=== PATIENT | female | born 1960 | race Hispanic/Latino ===

== ENCOUNTER 2017-02-23 17:14 | Emergency (ER) | payer OTHER ==
[2017-02-23 17:15] VITALS: BMI 25.7
[2017-02-23 17:18] VITALS: TEMP 98.3; O2SAT 97
[2017-02-23] MEDS ORDERED: DiphenhydrAMINE 50 mg/ml Inj IVP STA (17:32)
--- NOTE | 2017-02-23 17:46 | ED PDOC ---
Arrival/HPI - General Chief Complaint: Headache Time Seen by Provider: 02/23/17 17:21 Historian: Patient - History of Present Illness Narrative History of Present Illness (Text): 02/23/17 17:42 A 56 year old female whose past medical history includes, hyperthyroidism and an upper spine syrinx, presents to the Emergency department with upper back pain and a headache that has been worsening over the last few days. The patient [place] that [place] She also notes that 2 years ago she had an MRI that showed the syrinx and had another one done 2 weeks ago, but has not yet received the results. The patient denies fevers, chills, dizziness, chest pain, shortness of breath, abdominal pain, vomiting, nausea, diarrhea, or any other complaint. Time/Duration: Other (Few Days) Symptom Onset: Sudden Symptom Course: Unchanged Activities at Onset: Rest, Light Context: Home Past Medical History - Provider Review Nursing Documentation Reviewed: Yes - Infectious Disease Hx of Infectious Diseases: None - Tetanus Immunization Tetanus Immunization: Unknown - Reproductive Menopause: Yes (no period for at least 1 year) - Cardiac Hx Cardiac Disorders: Yes Hx Hypertension: Yes - Pulmonary Hx Respiratory Disorders: No - Neurological Hx Neurological Disorder: No - HEENT Hx HEENT Disorder: No - Renal Hx Renal Disorder: Yes Hx Kidney Stones: Yes (was removed) - Endocrine/Metabolic Hx Endocrine Disorders: Yes Hx Hypothyroidism: Yes - Hematological/Oncological Hx Blood Disorders: No - Integumentary Hx Dermatological Disorder: No - Musculoskeletal/Rheumatological Hx Falls: No - Gastrointestinal Hx Gastrointestinal Disorders: No - Genitourinary/Gynecological Hx Genitourinary Disorders: No - Psychiatric Hx Psychophysiologic Disorder: No Hx Substance Use: No - Surgical History Other/Comment: kidney stones removed - Anesthesia Hx Anesthesia: Yes Hx Anesthesia Reactions: No Hx Malignant Hyperthermia: No - Suicidal Assessment Feels Threatened In Home Enviroment: No Family/Social History - Physician Review Nursing Documentation Reviewed: Yes Family/Social History: No Known Family HX Smoking Status: Never Smoked Hx Alcohol Use: No Hx Substance Use: No Hx Substance Use Treatment: No Allergies/Home Meds Allergies/Adverse Reactions: Allergies No Known Allergies Allergy (Verified 02/23/17 17:18) Home Medications: Home Meds Medication Instructions Recorded Confirmed Levothyroxine [Synthroid] 25 mcg PO DAILY 01/02/15 02/23/17 Review of Systems - Physician Review All systems were reviewed & negative as marked: Yes - Review of Systems Constitutional: absent: Fevers, Night Sweats Respiratory: absent: SOB Cardiovascular: absent: Chest Pain Gastrointestinal: absent: Abdominal Pain, Diarrhea, Nausea, Vomiting Musculoskeletal: Back Pain Neurological: Headache. absent: Dizziness Physical Exam Vital Signs Reviewed: Yes Vital Signs Temp Pulse Resp BP Pulse Ox 02/23/17 17:17 98.3 F 83 18 116/79 97 Temperature: Afebrile Blood Pressure: Normal Pulse: Regular Respiratory Rate: Normal Appearance: Positive for: Well-Appearing, Non-Toxic, Comfortable Pain Distress: None Mental Status: Positive for: Alert and Oriented X 3 - Systems Exam Head: Present: Atraumatic, Normocephalic Pupils: Present: PERRL Extroacular Muscles: Present: EOMI Conjunctiva: Present: Normal Mouth: Present: Moist Mucous Membranes Neck: Present: Normal Range of Motion Respiratory/Chest: Present: Clear to Auscultation, Good Air Exchange. No: Respiratory Distress, Accessory Muscle Use Cardiovascular: Present: Regular Rate and Rhythm, Normal S1, S2. No: Murmurs Abdomen: Present: Normal Bowel Sounds. No: Tenderness, Distention, Peritoneal Signs Back: Present: Normal Inspection Upper Extremity: Present: Normal Inspection. No: Cyanosis, Edema Lower Extremity: Present: Normal Inspection. No: Edema Neurological: Present: GCS=15, CN II-XII Intact, Speech Normal Skin: Present: Warm, Dry, Normal Color. No: Rashes Psychiatric: Present: Alert, Oriented x 3, Normal Insight, Normal Concentration Medical Decision Making ED Course and Treatment: 02/23/17 17:48 Impression: A 56 year old female with a complaint of worsening headache and back pain for the past few days. Plan: -- Head CT -- Urinalysis -- Labs -- Benadryl and Reglan -- Reassess and disposition Prior Visits: Patient was last seen in the Emergency department on 01/02/15 for chest and back discomfort. Progress Notes: CT Head Without Intravenous Contrast IMPRESSION: No acute intracranial findings. Sphenoid sinus fluid level suggesting acute sinusitis. Dictated and Authenticated by: Magdy Prince MD 02/23/2017 6:58 PM Eastern Time ([place] & [place]) 02/23/17 19:41 case discussed with pts neurologist, dr frazier. state pt due for outpt mri. pt neuro intact. pain temp intact. pt states symptoms resolved. dr frazier advises pt can be managed as outpt. - Lab Interpretations Lab Results: 02/23/17 18:10 02/23/17 18:10 Lab Results 02/23/17 18:40: Urine Color Light yellow, Urine Appearance Clear, Urine pH 6.0, Ur Specific [place] 1.010, Urine Protein Negative, Urine Glucose (UA) Negative, Urine Ketones Negative, Urine Blood Negative, Urine Nitrate Negative, Urine Bilirubin Negative, Urine Urobilinogen 0.2, Ur Leukocyte Esterase Trace H, Urine RBC Pending, Urine WBC Pending, Urine HCG, Qual Pending 02/23/17 18:10: Sodium 140, Potassium 3.8, Chloride 103, Carbon Dioxide 28, Anion Gap 13, BUN 14, Creatinine 0.8, Est GFR ( Amer) > 60, Est GFR (Non- Af Amer) > 60, Random Glucose 97, Calcium 9.7, Total Bilirubin 0.9, AST 30, ALT 32, Alkaline Phosphatase 93, Total Protein 7.5, Albumin 4.3, Globulin 3.2, Albumin/Globulin Ratio 1.3 02/23/17 18:10: PT 11.1, INR 1.03, APTT 26.3 02/23/17 18:10: WBC 7.0 D, RBC 4.67, Hgb 14.2, Hct 41.5, MCV 88.9, MCH 30.4, MCHC 34.2, RDW 13.3, Plt Count 291, MPV 9.0, Gran % 57.3, Lymph % (Auto) 31.1, Kinney % (Auto) 9.6 H, Eos % (Auto) 1.9, Baso % (Auto) 0.1, Gran # 4.00, Lymph # 2.2, Kinney # 0.7 H, Eos # 0.1, Baso # 0.01 I have reviewed the lab results: Yes - RAD Interpretation Radiology Orders: 02/23/17 17:30 HEAD W/O CONTRAST [CT] Stat - Medication Orders Current Medication Orders: Discontinued Medications Diphenhydramine HCl (Benadryl) 25 mg IVP STAT STA Stop: 02/23/17 17:33 Last Admin: 02/23/17 18:09 Dose: 25 mg Metoclopramide HCl (Reglan) 10 mg IVP STAT STA Stop: 02/23/17 17:33 Last Admin: 02/23/17 18:09 Dose: 10 mg - Scribe Statement The provider has reviewed the documentation as recorded by the [facility] Provider Matthewibe Attestation: All medical record entries made by the Scribe were at my direction and personally dictated by me. I have reviewed the chart and agree that the record accurately reflects my personal performance of the history, physical exam, medical decision making, and the department course for this patient. I have also personally directed, reviewed, and agree with the discharge instructions and disposition. Disposition/Present on Arrival - Present on Arrival Any Indicators Present on Arrival: No History of DVT/PE: No History of Uncontrolled Diabetes: No Urinary Catheter: No History of Decub. Ulcer: No History Surgical Site Infection Following: None - Disposition Have Diagnosis and Disposition been Completed?: Yes Diagnosis: Headache Disposition: HOME/ ROUTINE Disposition Time: 19:42 Condition: STABLE Discharge Instructions (ExitCare): Acute Headache (ED) Additional Instructions: please follow up with your doctor. return to er with worsening symptoms or concerns. please follow up with your neurologist. you will need further testing. Prescriptions: Acetaminophen/Butalbital/Caf [Fioricet] 1 tab PO Q8 PRN #20 tab PRN Reason: Headache Referrals: Janis Frazier MD [Staff Provider] - Follow up with primary Forms: [employer] (Guatemalan)
[2017-02-23 18:20] LABS: BASO # 0.01 K/mm3 (0.0-2.0); BASO % 0.1 % (0.0-3.0); EOS # 0.1 (0.0-0.7); EOS % 1.9 % (1.5-5.0); GRAN % 57.3 % (50.0-68.0); HEMOGLOBIN 14.2 g/dL (12.0-16.0); LYMPH # 2.2 (1.2-3.4); LYMPH % 31.1 % (22.0-35.0); MEAN CELL VOLUME 88.9 fl (80.0-105.0); MEAN CORPUSCULAR HEMOGLOBIN 30.4 pg (25.0-35.0); MEAN CORPUSCULAR HGB CONC 34.2 g/dl (31.0-37.0); MONO # 0.7 (0.1-0.6); MONO % 9.6 % (1.0-6.0); PLATELET COUNT 291 10^3/uL (120.0-450.0); RBC 4.67 10^6/uL (3.5-6.1); RED CELL DISTRIBUTION WIDTH 13.3 % (11.5-14.5)
[2017-02-23 18:35] LABS: INR 1.03 (0.93-1.08); PARTIAL THROMBOPLASTIN TIME 26.3 Seconds (23.7-30.8); PROTHROMBIN TIME 11.1 Seconds (9.9-11.8)
[2017-02-23 18:36] LABS: ALB/GLOB RATIO 1.3 (1.1-1.8); ALBUMIN 4.3 g/dL (3.0-4.8); ALT/SGPT 32 U/L (7-56); AST/SGOT 30 U/L (15-39); BLOOD UREA NITROGEN 14 mg/dL (7-21); CALCIUM 9.7 mg/dL (8.4-10.5); GFR AFRICAN-AMERICAN > 60; GFR NON-AFRICAN AMERICAN > 60
[2017-02-23 19:34] LABS: URINE APPEARANCE CLEAR (CLEAR); URINE BILIRUBIN NEGATIVE (NEGATIVE); URINE BLOOD NEGATIVE (NEGATIVE); URINE COLOR LIGHT YELLOW (YELLOW); URINE GLUCOSE (UA) NEGATIVE (NEGATIVE); URINE LEUKOCYTE ESTERASE TRACE Leu/uL (NEGATIVE); URINE NITRATE NEGATIVE (NEGATIVE); URINE PROTEIN NEGATIVE mg/dL (<30 mg/dL); URINE UROBILINOGEN 0.2 E.U./dL (<1 E.U./dL)
[2017-02-23 19:45] LABS: HCG,QUALITATIVE URINE NEGATIVE (NEGATIVE)
[2017-02-23 19:51] LABS: URINE BACTERIA FEW (NEG); URINE EPITHELIAL CELLS 0 - 2 /hpf (0-5); URINE RBC 0 - 2 /hpf (0-2); URINE WBC 0 - 2 /hpf (0-6)
[2017-02-23 19:58] VITALS: BP 100/67; PULSE 64; RESP 16
--- NOTE | 2017-02-24 06:57 | CT ---
PROCEDURE: CT HEAD WITHOUT CONTRAST. HISTORY: [place] COMPARISON: None available. TECHNIQUE: Axial computed tomography images were obtained through the head/brain without intravenous contrast. Radiation dose: Total exam DLP = 774.23 mGy-cm. This CT exam was performed using one or more of the following dose reduction techniques: Automated exposure control, adjustment of the mA and/or kV according to patient size, and/or use of iterative reconstruction technique. FINDINGS: HEMORRHAGE: No intracranial hemorrhage. BRAIN: No mass effect or edema. No atrophy or chronic microvascular ischemic changes. VENTRICLES: Unremarkable. No hydrocephalus. CALVARIUM: Move PARANASAL SINUSES: Chronic ethmoid and left maxillary sinus disease. MASTOID AIR CELLS: Unremarkable as visualized. No inflammatory changes. OTHER FINDINGS: None. IMPRESSION: No acute intracranial abnormalities. No significant findings to account for the clinical presentation. Additional benign and/or incidental findings described above. Concordant results (preliminary interpretation) provided by [employer]. Procedure Completed: 18:27. Preliminary ([facility]) Report: Dictated and Authenticated: 18:58 Final Interpretation: 06:55 February 24, 2017.
== END 2017-02-23 20:00 | disposition home or self-care (01) ==
LOC: ED 17:14
DX: R51 Headache (principal); I10 Essential (primary) hypertension
CPT/HCPCS: 70450; 80053; 81001; 84703; 85025; 85610; 85730; 87086; 96374; 96375; 99285; J1200; J2765

== ENCOUNTER 2017-12-26 03:53 | Emergency (ER) | payer OTHER ==
[2017-12-26 03:54] VITALS: BMI 26.6
[2017-12-26 05:10] VITALS: RESP 18
[2017-12-26] MEDS ORDERED: DiphenhydrAMINE 50 mg/ml Inj IVP ONE (05:39)
--- NOTE | 2017-12-26 05:39 | ED PDOC ---
Arrival/HPI - General Chief Complaint: Headache Time Seen by Provider: 12/26/17 05:34 Historian: Patient, Family - History of Present Illness Narrative History of Present Illness (Text): 12/26/17 05:39 Sultan Beaver is a 57 year old female, whose past medical history includes hypothyroidism and migraine, who presents to the Emergency department complaining of a headache yesterday morning. 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 Patient states she took Fioricet at home without significant relief. Patient denies any fever, chills, chest pain, shortness of breath, nausea, vomiting, diarrhea, urinary symptoms, back pain, neck pain, dizziness, or any other complaints. Time/Duration: Other (yesterday) Symptom Course: Unchanged, Worsening Activities at Onset: Light Context: Home Past Medical History - Provider Review Nursing Documentation Reviewed: Yes - Infectious Disease Hx of Infectious Diseases: None - Tetanus Immunization Tetanus Immunization: Unknown - Reproductive Menopause: Yes - Cardiac Hx Cardiac Disorders: Yes Hx Hypertension: Yes - Pulmonary Hx Respiratory Disorders: No - Neurological Hx Neurological Disorder: No Hx Migraine: Yes - HEENT Hx HEENT Disorder: No - Renal Hx Renal Disorder: Yes Hx Kidney Stones: Yes (was removed) - Endocrine/Metabolic Hx Endocrine Disorders: Yes Hx Hypothyroidism: Yes - Hematological/Oncological Hx Blood Disorders: No - Integumentary Hx Dermatological Disorder: No - Musculoskeletal/Rheumatological Hx Back Pain: Yes Hx Falls: No - Gastrointestinal Hx Gastrointestinal Disorders: No - Genitourinary/Gynecological Hx Genitourinary Disorders: No - Psychiatric Hx Psychophysiologic Disorder: No Hx Substance Use: No - Surgical History Hx Section: Yes Hx Cholecystectomy: Yes - Anesthesia Hx Anesthesia: Yes Hx Anesthesia Reactions: No Hx Malignant Hyperthermia: No - Suicidal Assessment Feels Threatened In Home Enviroment: No Family/Social History - Physician Review Nursing Documentation Reviewed: Yes Family/Social History: Unknown Family HX Smoking Status: Heavy Smoker > 10 Cigarettes Daily Hx Alcohol Use: No Hx Substance Use: No Hx Substance Use Treatment: No Allergies/Home Meds Allergies/Adverse Reactions: Allergies No Known Allergies Allergy (Verified 12/26/17 05:10) Review of Systems - Physician Review All systems were reviewed & negative as marked: Yes - Review of Systems Constitutional: Normal. absent: Fevers Eyes: Normal ENT: Normal Respiratory: Normal. absent: SOB, Cough Cardiovascular: Normal. absent: Chest Pain Gastrointestinal: Normal. absent: Abdominal Pain, Diarrhea, Nausea, Vomiting Genitourinary Female: Normal. absent: Dysuria, Hematuria, Urine Output Changes Musculoskeletal: Normal. absent: Back Pain, Neck Pain Skin: Normal. absent: Rash Neurological: Headache. absent: Dizziness Endocrine: Normal Hemo/Lymphatic: Normal Psychiatric: Normal Physical Exam Vital Signs Reviewed: Yes Vital Signs Temp Pulse Resp BP Pulse Ox 12/26/17 05:03 97.7 F 82 18 122/86 97 Temperature: Afebrile Blood Pressure: Normal Pulse: Regular Respiratory Rate: Normal Appearance: Positive for: Well-Appearing, Non-Toxic, Comfortable Pain Distress: None Mental Status: Positive for: Alert and Oriented X 3 - Systems Exam Head: Present: Atraumatic, Normocephalic Pupils: Present: PERRL Extroacular Muscles: Present: EOMI Conjunctiva: Present: Normal Mouth: Present: Moist Mucous Membranes Neck: Present: Normal Range of Motion Respiratory/Chest: Present: Clear to Auscultation, Good Air Exchange. No: Respiratory Distress, Accessory Muscle Use Cardiovascular: Present: Regular Rate and Rhythm, Normal S1, S2. No: Murmurs Abdomen: No: Tenderness, Distention, Peritoneal Signs Back: Present: Normal Inspection Upper Extremity: Present: Normal Inspection. No: Cyanosis, Edema Lower Extremity: Present: Normal Inspection. No: Edema Neurological: Present: GCS=15, CN II-XII Intact, Speech Normal Skin: Present: Warm, Dry, Normal Color. No: Rashes Psychiatric: Present: Alert, Oriented x 3, Normal Insight, Normal Concentration Medical Decision Making ED Course and Treatment: 12/26/17 05:39 Impression: 57 year old female complaining of headache since yesterday morning. Plan: -- Benadryl -- Reglan -- Reassess and disposition Progress Notes: 12/26/17 06:53 Pt. with relief following treatment in the ED. - Medication Orders Current Medication Orders: Discontinued Medications Diphenhydramine HCl (Benadryl) 25 mg IVP ONCE ONE Stop: 12/26/17 05:40 Last Admin: 12/26/17 06:14 Dose: 25 mg IVP Administration Document 12/26/17 06:14 IT (Rec: 06/15/18 06:14 IT [id number]) Charges for Administration # of IVP Administrations 1 Metoclopramide HCl (Reglan) 10 mg IVP ONCE ONE Stop: 12/26/17 05:40 Last Admin: 12/26/17 06:14 Dose: 10 mg IVP Administration Document 12/26/17 06:14 IT (Rec: 12/26/17 06:14 IT [id number]) Charges for Administration # of IVP Administrations 1 - Scribe Statement The provider has reviewed the documentation as recorded by the [facility] Provider Scribe Attestation: All medical record entries made by the Scribe were at my direction and personally dictated by me. I have reviewed the chart and agree that the record accurately reflects my personal performance of the history, physical exam, medical decision making, and the department course for this patient. I have also personally directed, reviewed, and agree with the discharge instructions and disposition. Disposition/Present on Arrival - Present on Arrival Any Indicators Present on Arrival: No History of DVT/PE: No History of Uncontrolled Diabetes: No Urinary Catheter: No History of Decub. Ulcer: No History Surgical Site Infection Following: None - Disposition Have Diagnosis and Disposition been Completed?: Yes Diagnosis: Migraine headache Disposition: HOME/ ROUTINE Disposition Time: 06:52 Patient Plan: Discharge Condition: STABLE Discharge Instructions (ExitCare): Migraine Headache (DC) Additional Instructions: Continue with your medication as prescribed/follow up with your neurologist this week Forms: [employer] (Latvian)
[2017-12-26 07:38] VITALS: O2SAT 99
[2017-12-26 07:41] VITALS: BP 128/74; PULSE 88; TEMP 98.2
== END 2017-12-26 07:25 | disposition home or self-care (01) ==
LOC: ED 03:53
DX: G43.909 Migraine, unspecified, not intractable, without status migrainosus (principal)
CPT/HCPCS: 96374; 96375; 99285; J1200; J2765